=== PATIENT | male | born 1990 | race Hispanic/Latino ===

== ENCOUNTER 2020-05-09 21:23 | Emergency (ER) | payer SELFPAY ==
[2020-05-09 21:43] VITALS: BP 127/79; PULSE 91; RESP 18; TEMP 37.2; O2SAT 100
--- NOTE | 2020-05-09 21:54 | ED.GENADULT ---
HPI - General Adult General Chief complaint: Skin/Abscess/Foreign Body Stated complaint: hives on arms Time Seen by Provider: 05/09/20 21:53 Source: patient Mode of arrival: ambulatory Limitations: no limitations History of Present Illness HPI narrative: Patient is a 30-year-old male who presents for evaluation of bilateral arm irritation, itchiness and small bumps. 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 He denies any cough, shortness of breath. No history of allergic reactions in the past. Patient does report that he lives with his sister who uses a new laundry detergent and new shampoo and body wash this week as well. Patient denies irritation over the rest of his body. No blistering. No redness. No purulent discharge. Patient states he works outside often but does not recall any specific bug bites. No one else in his house has symptoms. Related Data Allergies Allergy/AdvReac Type Severity Reaction Status Date / Time No Known Allergies Allergy Verified 05/09/20 21:42 Review of Systems Review of Systems: Narrative: CONSTITUTIONAL: Denies fever CARDIOVASCULAR: Denies chest pain RESPIRATORY: Denies cough or dyspnea. GASTROINTESTINAL: Denies abdominal pain SKIN: Itching rash, bumps to bilateral arms MUSCULOSKELETAL: Denies back pain NEUROLOGIC: Denies headache PMFSH Past Medical History Medical History (Updated 05/09/20 @ 22:25 by Sophia Tomlinson MD) No pertinent past medical history Surgical History Surgical History (Updated 05/09/20 @ 22:21 by Sophia Tomlinson MD) No pertinent past surgical history Social History Social History (Updated 05/09/20 @ 22:22 by Sophia Tomlinson MD) Smoking status: Current every day smoker Tobacco type: cigarettes Alcohol intake: current Alcohol use details: Social Substance use: never Living arrangements: with family Gender identity (if verbalized by the patient): Male Exam Narrative: Exam Narrative: GENERAL: Awake, alert, conversant HEAD: Normocephalic, atraumatic. EYES: PERRLA and EOMI. ENT: Nares clear, no rhinorrhea or epistaxis. Mucous membranes moist. NECK: Supple. CHEST: No respiratory distress, breathing even and non labored HEART: Regular rate, sinus rhythm ABDOMEN:Non distended, non tender EXTREMITIES: Normal range of motion. No edema. SKIN: Warm, dry, bilateral papules to the forearms, elbows. No urticaria. No vesicles. No clustering of lesions. No excoriation or bleeding. NEURO:No focal deficits. Alert and oriented x3 Course Vital Signs Vital signs: Vital Signs Temperature 37.2 C 05/09/20 21:43 Pulse Rate 91 05/09/20 21:43 Respiratory Rate 18 05/09/20 21:43 Blood Pressure 127/79 05/09/20 21:43 Pulse Oximetry 100 05/09/20 21:43 Temperature 37.2 C 05/09/20 21:43 Pulse Rate 91 05/09/20 21:43 Respiratory Rate 18 05/09/20 21:43 Blood Pressure 127/79 05/09/20 21:43 Pulse Oximetry 100 05/09/20 21:43 Medical Decision Making MDM Narrative Medical decision making narrative: Patient presenting for evaluation of bilateral arm irritation. 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 As of currently, lesions are limited to the arms. These are non-excoriated, nonpurulent and do not seem consistent with vesicles such as shingles. They do not follow dermatomal distribution. Given their itchiness, would suspect contact dermatitis versus allergic reaction. Will trial low-dose steroids as well as Benadryl for the patient. He is okay to work I advised patient to wear long sleeves and gloves. Patient then discharged home. Vital Signs Vital Signs: Vital Signs Temperature 37.2 C 05/09/20 21:43 Pulse Rate 91 05/09/20 21:43 Respiratory Rate 18 05/09/20 21:43 Blood Pressure 127/79 05/09/20 21:43 Pulse Oximetry 100 05/09/20 21:43 Temperature
[2020-05-09 22:40] VITALS: BP 123/86; PULSE 88; RESP 17; O2SAT 97
== END 2020-05-09 22:41 | disposition home or self-care (01) ==
PROVIDERS: Emergency Provider Emergency Medicine
DX: L25.9 Unspecified contact dermatitis, unspecified cause (principal); F17.210 Nicotine dependence, cigarettes, uncomplicated
CPT/HCPCS: 99283